=== PATIENT | male | born 1985 | race African-American/Black ===

== ENCOUNTER 2019-02-05 01:14 | Emergency (ER) | payer SELFPAY ==
[~2019-02-05] VITALS: Ht 193 cm; Wt 113.4 kg
[~2019-02-05 01:14] MED LIST: NKM; ZOFRAN4 MG ORAL
--- NOTE | 2019-02-05 01:22 | NUR ---
ED Nurse Note: Pt was brought in by [facility] with a pt complaint of R side stomatch pain that "feels tight" (for 1 hr) accompainied with nausea. pt vital signs are stable. pt is alert and oriented times 4. LASD needs medical clearance. pt nuero assesment is within define limits, pt is alert and oriented times 4, pt pupiiles are rounds and reactvie to light and accomodating. pt cardic assesment is within define limits, pt S1 and S2 noted, cap refill is less than 3. pt respritory assesment is within define limits, no adventitious sounds noted on ascultation, all lung sounds are clear bilaterally.
[2019-02-05 01:27] VITALS: BP 127/76
[2019-02-05 03:20] VITALS: BP 125/76
[2019-02-05] MEDS ORDERED: IBUPROFEN600 MG ORAL (03:26)
[2019-02-05 03:41] VITALS: BP 140/80
[2019-02-05 03:42] VITALS: BP 140/80
--- NOTE | 2019-02-05 03:43 | NUR ---
ER DISCHARGE NOTE: Patient is cleared to be discharged per ERMD, pt is aox4, on room air, with stable vital signs. pt was given dc and prescription instructions, pt was able to verbalize understanding, pt id band removed without complications. pt is able to ambulate with steady gait. pt took all belongings.
--- NOTE | 2019-02-05 10:34 | Diagnostic Imaging Report ---
Indication: Abdominal pain for 3 days Technique: Spiral acquisitions obtained through the abdomen and pelvis. No oral contrast utilized, per emergency room physician request No IV contrast utilized, per referring physician request.. Multiplanar reconstructions were generated. Total dose length product 1010 mGycm. CTDIvol(s) 19.51 mGy. Dose reduction achieved using automated exposure control Comparison: 08/27/2018 Findings: The stomach is distended with food. The appendix is normal. There is no evidence of diverticulosis or diverticulitis. No small bowel distention. No free or loculated intraperitoneal gas or fluid. Lack of IV contrast limits assessment of the solid organs. The liver, gallbladder, bile ducts, pancreas, spleen, adrenals, kidneys are all unremarkable. No retroperitoneal or mesenteric mass or adenopathy. No pelvic mass or adenopathy. The included lung bases are clear. The bones are unremarkable. Findings are unchanged Impression: Negative This agrees with the preliminary interpretation provided overnight by [facility]erad[facility] service. The CT scanner at [facility] is accredited by the [employer] and the scans are performed using protocols designed to limit radiation exposure to as low as reasonably achievable to attain images of sufficient resolution adequate for diagnostic evaluation.
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
== END 2019-02-05 03:40 ==
LOC: EMR 01:30
DX: R10.9 Unspecified abdominal pain (principal); R51 Headache
CPT/HCPCS: 70450; 74176; 99284